=== PATIENT | male | born 1940 | race Native Hawaiian/Other Pacific Islander ===

== ENCOUNTER 2016-09-13 12:58 | Emergency (ER) | payer MEDICARE, OTHER ==
[2016-09-13 14:40] LABS: I-STAT CREATININE 0.9 mg/dL (0.6-1.3)
[2016-09-13 14:51] LABS: ABSOLUTE NEUTROPHIL COUNT 5.7 K/mm3 (1.8-7.7); BASO # 0.1 K/mm3 (0.0-0.2); BASO % 0.6 % (0.2-1.0); EOS # 0.5 (0.0-0.5); EOS % 6.6 % (0.9-2.9); HEMATOCRIT 40.9 % (32.0-52.0); HEMOGLOBIN 12.9 gm/l (14.0-18.0); IMM NEUT% 0.2 % (0-1); LYMPH # 1.3 (1.0-4.8); LYMPH % 16.3 % (15-45); MEAN CELL VOLUME 90.7 fl (80.0-94.0); MEAN CORPUSCULAR HEMOGLOBIN 28.6 pg (27.0-31.0); MEAN CORPUSCULAR HGB CONC 31.5 g/dl (33.0-37.0); MEAN PLATELET VOLUME 10.2 fl (7.4-10.4); MONO # 0.6 (0.0-0.8); MONO % 7.2 % (4-12); NEUT % 69.1 % (43-75); PLATELET COUNT 158 K/mm3 (130-400); RED CELL DISTRIBUTION WIDTH 19.7 % (11.5-14.5)
[2016-09-13 14:59] LABS: URINE BILIRUBIN NEGATIVE (NEGATIVE); URINE BLOOD NEGATIVE (NEGATIVE); URINE GLUCOSE (UA) NEGATIVE (NEGATIVE); URINE LEUKOCYTE ESTERASE NEGATIVE (NEGATIVE); URINE NITRITE NEGATIVE (NEGATIVE); URINE PROTEIN NEGATIVE (NEGATIVE); URINE UROBILINOGEN NORMAL (0-1 mg/dl)
[2016-09-13 15:01] LABS: TROPONIN I 0.01 ng/ml (0.0-0.06)
[2016-09-13 15:04] LABS: URINE APPEARANCE CLEAR; URINE COLOR YELLOW
[2016-09-13 15:10] LABS: THYROID STIMULATING HORMONE 22.2 uIU/ml (0.34-5.60)
[2016-09-14 17:36] LABS: ALB/GLOB RATIO 1.1 (>1.0); ALBUMIN 3.6 gm/dL (3.5-5.7); CALCIUM 9.1 mg/dL (8.6-10.3); MAGNESIUM 2.1 mg/dL (1.9-2.7)
== END 2016-09-13 19:10 | disposition short-term general hospital (02) ==
LOC: ED 12:58
DX: M62.81 Muscle weakness (generalized) (principal); C34.90 Malignant neoplasm of unspecified part of unspecified bronchus or lung; R94.6 Abnormal results of thyroid function studies; I10 Essential (primary) hypertension; J44.9 Chronic obstructive pulmonary disease, unspecified; Z87.891 Personal history of nicotine dependence